=== PATIENT | male | born 1990 | race African-American/Black ===

== ENCOUNTER 2017-09-21 16:52 | Emergency (ER) | payer BC ==
[~2017-09-21] VITALS: Ht 182.9 cm; Wt 102.2 kg
[~2017-09-21 16:52] MED LIST: ALBUAER2 INH
[2017-09-21 17:01] VITALS: BP 137/86; PULSE 82; TEMP 36.6; O2SAT 100; Ht 182.9 cm; Wt 102.2 kg
[2017-09-23] MEDS ORDERED: ACET-1047 PO (12:43)
[2017-09-23] MEDS ORDERED: ULT50X PO (12:43)
[2017-09-23] MEDS ORDERED: XRL15 PO (12:43)
== END 2017-09-21 18:29 | disposition left against medical advice (07) ==
LOC: C.EDB 16:54 → C.EDC 18:29
DX: R07.9 Chest pain, unspecified (principal)

== ENCOUNTER 2017-09-21 22:23 | Inpatient (IN) | payer BC, OTHER ==
[~2017-09-21] VITALS: Ht 182.9 cm; Wt 109.3 kg
[2017-09-21] MEDS ORDERED: ONDANSETRON INJ 2 MG/ML 2 ML VIAL IV STA (22:38)
[2017-09-21] MEDS ORDERED: ASPIRIN 324 MG CHEW PO STA (22:38)
[2017-09-21] MEDS ORDERED: SODIUM CHLORIDE 0.9% 1000ML 1,000 ML IV ONE (22:45)
[2017-09-21] MEDS ORDERED: NITROGLYCERIN 2% OINTMENT 30GM TUBE EXT ONE (22:45)
[2017-09-21] MEDS ORDERED: OPTIRAY 320 IV PRN (22:45)
[2017-09-21] MEDS ORDERED: MoRPHine SULFATE 4 MG/ML 1 ML CARP\\VIAL IV ONE ×2 (22:45→23:45)
--- NOTE | 2017-09-21 23:09 | DIAGNOSTIC IMAGING REPORT ---
CHEST ONE VIEW PORTABLE HISTORY: Atypical Chest pain COMPARISON: None. FINDINGS: There are low lung volumes. Prominence of interstitial markings may be due to vascular crowding from the low lung volumes. No definite focal lung consolidations. The heart is normal in size. No pleural effusions. No pneumothorax. IMPRESSION: No acute process. Low lung volumes. Electronically signed by: Mickey Avelar M.D. 09/21/2017 11:07 PM Dictated Date/Time: 09/21/2017 11:06 PM
[2017-09-21 23:13] LABS: BASO % 0.1 %; BASO ABS # 0.01 K/uL (0-0.2); EOS % 0.4 %; EOS ABS # 0.05 K/uL (0-0.5); HEMATOCRIT 42.4 % (42-52); HEMOGLOBIN 14.4 g/dL (14.0-18.0); IG# 0.03 K/uL (0.00-0.02); LYMPH % 20.6 %; LYMPH ABS # 2.33 K/uL (1.2-3.4); MEAN CELL VOLUME 86.2 fL (80-100); MEAN CORPUSCULAR HEMOGLOBIN 29.3 pg (25-34); MEAN PLATELET VOLUME 9.5 fL (7.4-10.4); MONO % 6.7 %; MONO ABS # 0.76 K/uL (0.11-0.59); NEUT % 71.9 %; NEUT ABS # 8.14 K/uL (1.4-6.5); PLATELET COUNT 231 K/uL (130-400); RED CELL DISTRIBUTION WIDTH CV 11.8 % (11.5-14.5); RED CELL DISTRIBUTION WIDTH SD 37.1 fL (36.4-46.3); WHITE BLOOD COUNT 11.32 K/uL (4.8-10.8)
[2017-09-21 23:23] LABS: INR 0.9 (0.9-1.1); PTT PATIENT 28.1 SECONDS (21.0-31.0)
[2017-09-21 23:31] LABS: ALBUMIN 3.9 gm/dl (3.4-5.0); CALCIUM 8.4 mg/dl (8.5-10.1); CREATININE 1.15 mg/dl (0.60-1.40); POTASSIUM 3.9 mmol/L (3.5-5.1)
[2017-09-21 23:42] LABS: TOTAL PROTEIN 7.8 gm/dl (6.4-8.2)
[2017-09-22] VITALS (7 sets, daily range): BP systolic 117–149; BP diastolic 74–82; PULSE 71–95; TEMP 36.6–37.1; O2SAT 96–100; Ht 182.9 cm; Wt 109.3 kg
[2017-09-22] MEDS ORDERED: HYDROmorphone INJ 0.5 MG/0.5 ML SYR IV STA (00:25)
[2017-09-22] MEDS ORDERED: CALCIUM GLUCONATE 10% 1,000 MG in SODIUM CHLORIDE 0.9% 50ML 50 ML IV STA (00:42)
[2017-09-22] MEDS ORDERED: ENOXAPARIN 1 MG/KG SQ ONE (00:45)
[2017-09-22] MEDS ORDERED: ENOXAPARIN 120 MG/0.8 ML SYR SQ STA (00:49)
[2017-09-22] MEDS ORDERED: LIDODERM (LIDOCAINE) PATCH 5% TD ONE (01:12)
[2017-09-22] MEDS ORDERED: HYDROmorphone INJ 0.5 MG/0.5 ML SYR IV PRN (01:15)
[2017-09-22] MEDS ORDERED: LORAZEPAM 2 MG/ML 1 ML VIAL IV PRN (01:15)
[2017-09-22] MEDS ORDERED: PROCHLORPERAZINE INJ 5 MG in SYRINGE 4 ML IV PRN (01:15)
[2017-09-22] MEDS ORDERED: KETOROLAC TROMETHAMINE 30 MG/ML VIAL IV STA (01:16)
[2017-09-22] MEDS ORDERED: DOCUSATE SODIUM 100 MG CAP PO ONE (01:16)
[2017-09-22] MEDS ORDERED: NSS + 20MEQ KCL 1000ML 1,000 ML IV ONE (03:00)
--- NOTE | 2017-09-22 04:55 | HISTORY & PHYSICAL EXAMINATION ---
DATE OF ADMISSION: 09/22/2017 PRIMARY CARE PHYSICIAN: None. CHIEF COMPLAINT: Left sided chest pain. HISTORY OF PRESENT ILLNESS: No significant medical history. Yesterday, the patient noted left-sided chest pain, pleuritic with some shortness of breath. No hemoptysis, no cough, no trauma. Right leg little sore. Recent travel by car to [place] to visit family, would make pit stops. No previous episodes. No unusual weight loss, fever, chills. At the Emergency Room, CT chest initial read, pulmonary embolism, left lung base, pulmonary infarct left lobe, reduced lung volumes. Patient given weight-based Lovenox at the ER. MEDICAL HISTORY: As above. SURGERIES: None. HOME MEDICATIONS: None. ALLERGIES: No known drug allergies. FAMILY HISTORY: Paraplegic father has history of blood clots. PERSONAL AND SOCIAL HISTORY: Nonsmoker, no chronic intake of alcoholic beverages. vendor manager. REVIEW OF SYSTEMS: As per HPI. All 10 systems reviewed. All other ROS negative. PHYSICAL EXAMINATION: VITAL SIGNS: Blood pressure was noted to be 130/66, pulse rate 111 later 90, RR 20, temperature 36.7, sats 99 on room air. GENERAL: Noted to be obese, slightly anxious, discomfort, no respiratory distress. SKIN: Normal color, warm. HEENT: Patrick palpebral conjunctivae. No ptosis. Dry mucosa. NECK: Short, supple. CHEST: Decreased effort. Tenderness in the left chest wall. HEART : RRR, no murmur ABDOMEN: Some distention, nontender. EXTREMITIES: No edema. Minimal tenderness on the right lower extremity. NEUROLOGIC: Coherent. No gross focality. LABORATORY DATA: Hemoglobin was noted to be 14.4, hematocrit 42.4, white blood cell count 11.2, platelets 231. Sodium 139, potassium 3.9, chloride 104, CO2 of 28, BUN 8, creatinine 1.15, glucose was noted to be 118. Troponin was 0.03. CTA as per my above. EKG as per my interpretation, rate 85, normal sinus rhythm, no ischemia, possible LVH. ASSESSMENT: 1. Acute pulmonary embolism No obvious provoking factor for now Rule out LE DVT as source of clot. 2. Hyperglycemia rule out DM PLAN: PCU Weight-based Lovenox SQ for now. Defer discussion regarding oral anticoagulation between patient and AM provider. LE venous Dopplers rule out DVT check hemoglobin A1c. DVT prophylaxis, Lovenox subQ. Full code. MTDD
--- NOTE | 2017-09-22 06:25 | DIAGNOSTIC IMAGING REPORT ---
BILATERAL LOWER EXTREMITY VENOUS DOPPLER CLINICAL HISTORY: Pulmonary emboli COMPARISON STUDY: No previous studies for comparison. TECHNIQUE: Sonography of the deep venous system of the bilateral lower extremities was performed. Compression and augmentation were evaluated. FINDINGS: The bilateral common femoral, superficial femoral and popliteal veins were compressible. Augmentation was normal. Flow was shown within the deep calf vessels. IMPRESSION: No evidence of deep venous thrombus within the bilateral lower extremities. Electronically signed by: Calixto Parks M.D. 09/22/2017 6:23 AM Dictated Date/Time: 09/22/2017 6:21 AM
[2017-09-22] MEDS: ACETAMINOPHEN 325 MG TAB PO PRN (07:14)
--- NOTE | 2017-09-22 07:25 | DIAGNOSTIC IMAGING REPORT ---
(CHEST FOR PE) ANGIO WITH CLINICAL HISTORY: 27 years-old Male presenting with ^Chest pain, shortness of breath. TECHNIQUE: Multidetector CT angiography of the chest was performed after administration of intravenous contrast. 3-D volumetric and/or maximum intensity projection (MIP) images were subsequently reconstructed for review. IV contrast: 93 mL of Optiray 320. A dose lowering technique was used consistent with the principles of ALARA (as low as reasonably achievable). COMPARISON: Chest x-ray performed earlier the same day. CT DOSE (mGy.cm): The estimated cumulative dose is 663.63 mGy.cm. FINDINGS: Peritoneal Dialysis Registered Nurse topogram: Low lung volumes. Pulmonary vasculature: The study is suboptimal for the assessment of the pulmonary vascular tree secondary to timing of the contrast bolus and respiratory motion artifact. Filling defect within the posterior basal/lateral basal subsegmental pulmonary artery to the left lower lobe (series 4 image 113). The embolus appears somewhat eccentric suggesting possible subacute time course. Main pulmonary artery enlarged measuring 3.2 cm in diameter. No flattening of the interventricular septum. No intracardiac filling defect. No reflux of contrast into the hepatic veins. Remaining chest: On soft tissue windows, bilateral gynecomastia. Normal thyroid. No axillary, supraclavicular, hilar, or mediastinal lymphadenopathy. Normal aorta. Normal heart size. No pericardial or pleural effusion. Upper abdomen normal. On lung windows, extensive groundglass opacity in the posterior basal left lower lobe. Mosaic attenuation throughout the lungs may relate to the phase of respiration or small airways disease. Mild bronchial wall thickening in the involved segments of the left lower lobe. Minimal bronchial debris noted in subsegmental left lower lobe bronchi. More central airways patent. On bone windows, normal osseous structures. IMPRESSION: 1. Findings consistent with pulmonary embolus to subsegmental branches of the posterior basal/lateral basal left lower lobe. The embolus appears somewhat eccentric, which could suggest a subacute time course and organization of thrombus. Regional consolidation in the left lower lobe suggest pulmonary infarct. Superimposed infection is considered less likely though the presence of bronchial wall thickening and bronchial debris is somewhat atypical. This consolidation should be followed to resolution. Preliminary findings were discussed with Dr. Huitron by Dr. Cedeño on 09/22/2017 12:24 AM. The report will be called/faxed according to standard departmental protocol. Electronically signed by: Stephen Dias M.D. 09/22/2017 7:24 AM Dictated Date/Time: 09/22/2017 6:46 AM
[2017-09-22 07:34] LABS: BLOOD UREA NITROGEN 8 mg/dl (7-18); CREATININE 0.95 mg/dl (0.60-1.40); GLUCOSE 105 mg/dl (70-99)
[2017-09-22 07:35] LABS: CARBON DIOXIDE 27 mmol/L (21-32); SODIUM 138 mmol/L (136-145)
[2017-09-22] MEDS: TRAMADOL HCL 50 MG TAB PO PRN (11:38)
[2017-09-22] MEDS: HYDROmorphone INJ 0.5 MG/0.5 ML SYR IV PRN ×2 (14:00→20:36)
[2017-09-22] MEDS: ENOXAPARIN 120 MG/0.8 ML SYR SQ SCH ×2 (14:01→20:34)
--- NOTE | 2017-09-22 16:23 | Consultant Recommendations ---
Customer Security Clerk Recommendations Date of Service Sep 22, 2017. Customer Security Clerk Recommendations Pulmonary Follow up with Dr. Robertson, 10/07/17 at 11:00am. [address] [facility] [place] [phone]
[2017-09-22] MEDS ORDERED: ONDANSETRON INJ 2 MG/ML 2 ML VIAL IV PRN (18:30)
--- NOTE | 2017-09-22 18:54 | Progress Note ---
Progress Note Date of Service Sep 22, 2017. Progress Note Subjective: Patient breathing comfortably on room air generally. Does report of having pain when taking deep breaths Physical Exam General: no acute distress Lungs:good air entry, no wheezes, no crackles Heart: regular rate Abdomen: soft,nontender, + bowel sounds Extremities: no edema This is a 27 year old M with newly diagnosed pulmonary embolism with CTA impressions as below CTA "Findings consistent with pulmonary embolus to subsegmental branches of the posterior basal/lateral basal left lower lobe. The embolus appears somewhat eccentric, which could suggest a subacute time course and organization of thrombus. Regional consolidation in the left lower lobe suggest pulmonary infarct. Superimposed infection is considered less likely though the presence of bronchial wall thickening and bronchial debris is somewhat atypical. This consolidation should be followed to resolution." No evidence of deep venous thrombus within the bilateral lower extremities. Patient currently on full dose Lovenox BID for treating the PE with plan to discharge on Xarelto with low cost Xarelto being arranged by case management Patient also has pleuritic chest pain likely due to the pulmonary embolism and will continue pain medications and bowel regimen to prevent narcotic induced ileus Possible discharge tomorrow Pulmonary Follow up with Dr. Robertson, 10/07/17 at 11:00am. [address] [facility] [place]. [phone]
--- NOTE | 2017-09-22 23:33 | EMERGENCY ROOM VISIT NOTE ---
History First contact with patient: 22:30 Chief Complaint: SHORTNESS OF BREATH Stated Complaint: PULMONARY EMBOLISM Nursing Triage Summary: patient states this AM he developed chest pain. believed the pain was gas pain. pain decreased after burping. tonight patient fell asleep and awoke with worsening chest pain and shortness of breath History of Present Illness The patient is a 27 year old male who presents to the Emergency Room with complaints of left-sided chest pain that began about 12 hours ago when he awoke from sleep. The patient states that he has had difficulty sleeping tonight because of the pain. Different positions and deep inspiration worsen the discomfort which he rates a 10/10. The patient did initially check into the ER several hours ago, but left without being seen as he felt his symptoms may have been related to gas in his stomach. The patient has not had fever or chills. He states that he did travel to and from [facility] a few weeks ago, but does not have other recent travel history. He does not take medication on a regular basis and considers himself otherwise usually healthy. Review of Systems More than 10 systems were reviewed and otherwise negative with the exception of history of present illness. Past Medical/Surgical History Medical Problems: (1) Pulmonary embolism Social History Smoking Status: Never Smoker Housing Status: lives with family Current/Historical Medications No Active Prescriptions or Reported Meds Physical Exam Vital Signs Date Time Temp Pulse Resp B/P (MAP) Pulse Ox O2 Delivery O2 Flow Rate FiO2 09/22/17 00:40 111 99 09/22/17 00:30 130/66 09/22/17 00:25 84 20 96 09/22/17 00:10 85 23 98 09/22/17 00:05 86 28 97 09/22/17 00:00 132/79 09/21/17 23:31 123/74 09/21/17 23:20 82 22 98 09/21/17 23:15 83 25 99 Room Air 09/21/17 23:05 129/76 09/21/17 23:04 84 09/21/17 23:02 96 Room Air 09/21/17 23:02 Room Air 09/21/17 22:26 36.7 91 20 132/86 97 Room Air Physical Exam VITALS: Vitals are noted on the nurse's note and reviewed by myself. Vital signs stable. GENERAL: Well-developed, well-nourished, black male who appears in moderate to severe discomfort secondary to his stated complaint. He is holding his left side chest with his right hand. NECK: Supple without nuchal rigidity. No lymphadenopathy. No thyromegaly. Cervical spine is nontender. HEART: Regular rate and rhythm without murmurs gallops or rubs. LUNGS: Clear to auscultation bilaterally without wheezes, rales or rhonchi. No retractions or accessory muscle use. ABDOMEN: Positive normal bowel sounds x 4. Soft, nontender, without masses or organomegaly. No guarding or rebound tenderness. MUSCULOSKELETAL: No muscle atrophy, erythema, or edema noted. Full range of motion in all extremities. No tenderness to palpation. No significant calf tenderness. No palpable cords. NEURO: Patient was alert and oriented to person place and time. CN II through XII grossly intact. Medical Decision & Procedures ER Provider Diagnostic Interpretation: Preliminary Findings Only See Final Report For Complete Findings CTA CHEST: Pulmonary embolus in the left lung base. Pulmonary infarct in the left lower lobe. Reduced lung volumes. Laboratory Results 09/21/17 22:45 Red Blood Count 4.92, Mean Corpuscular Volume 86.2, Mean Corpuscular Hemoglobin 29.3, Mean Corpuscular Hemoglobin Concent 34.0, Mean Platelet Volume 9.5, Neutrophils (%) (Auto) 71.9, Lymphocytes (%) (Auto) 20.6, Monocytes (%) (Auto) 6.7, Eosinophils (%) (Auto) 0.4, Basophils (%) (Auto) 0.1, Neutrophils # (Auto) 8.14, Lymphocytes # (Auto) 2.33, Monocytes # (Auto) 0.76, Eosinophils # (Auto) 0.05, Basophils # (Auto) 0.01 Test 09/21/17 22:45 09/21/17 22:51 09/21/17 23:35 White Blood Count 11.32 K/uL (4.8-10.8) Red Blood Count 4.92 M/uL (4.7-6.1) Hemoglobin 14.4 g/dL (14.0-18.0) Hematocrit 42.4 % (42-52) Mean Corpuscular Volume 86.2 fL (80-100) Mean Corpuscular Hemoglobin 29.3 pg (25-34) Mean Corpuscular Hemoglobin Concent 34.0 g/dl (32-36) Platelet Count 231 K/uL (130-400) Mean Platelet Volume 9.5 fL (7.4-10.4) Neutrophils (%) (Auto) 71.9 % Lymphocytes (%) (Auto) 20.6 % Monocytes (%) (Auto) 6.7 % Eosinophils (%) (Auto) 0.4 % Basophils (%) (Auto) 0.1 % Neutrophils # (Auto) 8.14 K/uL (1.4-6.5) Lymphocytes # (Auto) 2.33 K/uL (1.2-3.4) Monocytes # (Auto) 0.76 K/uL (0.11-0.59) Eosinophils # (Auto) 0.05 K/uL (0-0.5) Basophils # (Auto) 0.01 K/uL (0-0.2) RDW Standard Deviation 37.1 fL (36.4-46.3) RDW Coefficient of Variation 11.8 % (11.5-14.5) Immature Granulocyte % (Auto) 0.3 % Immature Granulocyte # (Auto) 0.03 K/uL (0.00-0.02) Prothrombin Time 9.7 SECONDS (9.0-12.0) Prothromb Time International Ratio 0.9 (0.9-1.1) Activated Partial Thromboplast Time 28.1 SECONDS (21.0-31.0) Partial Thromboplastin Ratio 1.1 Magnesium Level 2.1 mg/dl (1.8-2.4) Total Bilirubin 0.5 mg/dl (0.2-1) Aspartate Amino Transf (AST/SGOT) 16 U/L (15-37) Alanine Aminotransferase (ALT/SGPT) 26 U/L (12-78) Alkaline Phosphatase 60 U/L (45-117) Total Protein 7.8 gm/dl (6.4-8.2) Albumin 3.9 gm/dl (3.4-5.0) Globulin 3.9 gm/dl (2.5-4.0) Albumin/Globulin Ratio 1.0 (0.9-2) Lipase 117 U/L (73-393) Thyroid Stimulating Hormone (TSH) 0.853 uIu/ml (0.300-4.500) Bedside Troponin I < 0.030 ng/ml (0-0.045) Urine Color YELLOW Urine Appearance CLEAR (CLEAR) Urine pH 7.0 (4.5-7.5) Urine Specific Chambers 1.018 (1.000-1.030) Urine Protein NEG (NEG) Urine Glucose (UA) NEG (NEG) Urine Ketones NEG (NEG) Urine Occult Blood NEG (NEG) Urine Nitrite NEG (NEG) Urine Bilirubin NEG (NEG) Urine Urobilinogen NEG (NEG) Urine Leukocyte Esterase NEG (NEG) Medications Administered Medications (Trade) Dose Ordered Sig/Hema Route Start Time Stop Time Status Last Admin Dose Admin Sodium Chloride 1,000 ml @ 999 mls/hr Q1H1M ONCE IV 09/21/17 22:45 09/21/17 23:45 DC 09/21/17 22:55 999 MLS/HR Morphine Sulfate (MoRPHine SULFATE INJ) 4 mg NOW ONCE IV 09/21/17 22:45 09/21/17 22:46 DC 09/21/17 22:54 4 MG Ondansetron HCl (Zofran Inj) 4 mg NOW STAT IV 09/21/17 22:38 09/21/17 22:41 DC 09/21/17 22:53 4 MG Aspirin (Aspirin Chew) 324 mg NOW STAT PO 09/21/17 22:38 09/21/17 22:41 DC 09/21/17 22:53 324 MG Nitroglycerin (Nitroglycerin 2% Oint) 1 inch NOW ONCE EXT 09/21/17 22:45 09/22/17 01:30 DC 09/21/17 22:45 1 INCH Morphine Sulfate (MoRPHine SULFATE INJ) 4 mg NOW ONCE IV 09/21/17 23:45 09/21/17 23:46 DC 09/21/17 23:42 4 MG Hydromorphone HCl (Dilaudid Inj) 0.5 mg NOW STAT IV 09/22/17 00:25 09/22/17 00:28 DC 09/22/17 00:32 0.5 MG Calcium Gluconate 1000 mg/Sodium Chloride 60 ml @ 240 mls/hr NOW STAT IV 09/22/17 00:42 09/22/17 00:56 DC 09/22/17 01:12 240 MLS/HR ED Course Physical exam and history were performed. Nursing notes, EMR, and Medication List were personally reviewed. Patient appears to have left-sided chest pain bring him to the emergency department today. On presentation the patient appears quite uncomfortable and is clutching the left side of his chest. EKG was performed and was normal sinus rhythm at 93 bpm without ischemia and ectopy per my interpretation. IV access was established and labs are obtained. Portable chest x-ray was performed and did not show acute process. The patient was hydrated with normal saline. Because of his symptoms I elected to perform a CT angiogram of his chest. It took several rounds of IV morphine, and ultimately IV Dilaudid to keep his pain under control. He did have several episodes of tachypnea and intermittent tachycardia throughout his ER stay. The patient's blood work is as above and was reviewed. He does not have a significantly elevated white blood cell count, gross anemia, bandemia, or significant electrolyte imbalance. Lipase and transaminases are not diagnostic. Troponin [address] angiogram was remarkable for a left lower lobe pulmonary emboli, which is felt to be the likely cause of his chest discomfort. The patient was given Lovenox here in the department. I discussed the case with my attending physician, who remain closely involved in care decision-making. The case was then discussed with the on-call [facility] hospitalist, who will evaluate the patient here in the department. Please see their dictation for further patient course, plan, and disposition. The chart was completed utilizing [employer] Speech Voice Recognition Software. Grammatical errors, random word insertions, pronoun errors, and incomplete sentences are an occasional consequence of this system due to software limitations, ambient noise, and hardware issues. Any formal questions or concerns about the content, text, or information contained within the body of this dictation should be directly addressed to the provider for clarification. . Medical Decision Differential diagnosis includes, but is not limited to: Myocardial infarction, dysrhythmia, pericarditis, pneumothorax, aortic aneurysm/dissection, DVT/PE, anxiety, GERD, PUD, electrolyte imbalance, thyroid disorder, pneumonia, bronchitis, pancreatitis, and others Impression Primary Impression: Acute pulmonary embolism Critical Care I have personally spent greater than 30 minutes of critical care time in the direct management of this patient. This includes bedside care, interpretation of diagnostic studies, and testing, discussion with consultants, patient, and family members, and other required patient management activities. This 30 minutes is in excess of all separately billable procedures. Departure Information Dispostion Still a Patient Condition FAIR Prescriptions No Active Prescriptions or Reported Meds Referrals No Doctor, Assigned (PCP) Forms HOME CARE DOCUMENTATION FORM, IMPORTANT VISIT INFORMATION Patient Instructions [facility]
[2017-09-23 04:00] VITALS: BP 136/86; PULSE 81; TEMP 37.5; O2SAT 97
[2017-09-23] MEDS: TRAMADOL HCL 50 MG TAB PO PRN (04:38)
[2017-09-23 07:11] LABS: BASO % 0.2 %; BASO ABS # 0.02 K/uL (0-0.2); EOS % 0.4 %; EOS ABS # 0.04 K/uL (0-0.5); HEMATOCRIT 40.8 % (42-52); HEMOGLOBIN 13.7 g/dL (14.0-18.0); IG# 0.03 K/uL (0.00-0.02); LYMPH % 18.2 %; LYMPH ABS # 1.95 K/uL (1.2-3.4); MEAN CELL VOLUME 87.2 fL (80-100); MEAN CORPUSCULAR HEMOGLOBIN 29.3 pg (25-34); MEAN CORPUSCULAR HGB CONC 33.6 g/dl (32-36); MEAN PLATELET VOLUME 9.7 fL (7.4-10.4); MONO % 8.5 %; MONO ABS # 0.91 K/uL (0.11-0.59); NEUT % 72.4 %; NEUT ABS # 7.75 K/uL (1.4-6.5); PLATELET COUNT 244 K/uL (130-400); RED CELL DISTRIBUTION WIDTH CV 11.8 % (11.5-14.5); RED CELL DISTRIBUTION WIDTH SD 37.4 fL (36.4-46.3)
[2017-09-23 07:26] VITALS: BP 128/78; PULSE 74; TEMP 37; O2SAT 97
[2017-09-23] MEDS: ACETAMINOPHEN 325 MG TAB PO PRN (08:36)
[2017-09-23] MEDS ORDERED: DOCUSATE SODIUM 100 MG CAP PO SCH (09:00)
[2017-09-23] MEDS ORDERED: RIVAROXABAN TAB 15 MG TAB PO SCH (09:00)
[2017-09-23] MEDS ORDERED: LIDODERM (LIDOCAINE) PATCH 5% TD SCH (09:00)
[2017-09-23] MEDS ORDERED: RIVAROXABAN 20 MG TAB PO SCH (09:00)
[2017-09-23 11:48] VITALS: BP 143/81; PULSE 78; TEMP 36.7; O2SAT 98
--- NOTE | 2017-09-23 12:35 | Progress Note ---
Internal Med Progress Note Date of Service: Sep 23, 2017. Provider Documentation: Subjective: Patient breathing comfortably on room air generally. Does report of having pain when taking deep breaths Physical Exam General: no acute distress Lungs:good air entry, no wheezes, no crackles Heart: regular rate Abdomen: soft,nontender, + bowel sounds Extremities: no edema ASSESSMENT & PLAN: Hospital Course This is a 27 year old M with newly diagnosed pulmonary embolism with CTA impressions as below CTA 09/21/17 "Findings consistent with pulmonary embolus to subsegmental branches of the posterior basal/lateral basal left lower lobe. The embolus appears somewhat eccentric, which could suggest a subacute time course and organization of thrombus. Regional consolidation in the left lower lobe suggest pulmonary infarct. Superimposed infection is considered less likely though the presence of bronchial wall thickening and bronchial debris is somewhat atypical. This consolidation should be followed to resolution." No evidence of deep venous thrombus within the bilateral lower extremities on ultrasound 09/22/17 Patient was treated in the hospital with full dose Lovenox BID for treating the Pulmonary embolism and transitioned to Xarelto upon discharge Discharge Instructions Patient to be given prescription for pain medication for the pleuritic chest pain from the pulmonary embolism Patient is instructed to pickling operator low cost Xarelto starter pack that was arranged by case management at [facility] [address] [place] [facility] [place] [place] [address] Patient will need to be on Xarelto medication for at least 3 months and need to follow with primary care doctor for further Xarelto prescriptions ( Initial dosing is 15 mg twice daily with food for 21 days, followed by 20 mg once daily with food) 09/27/2017 11:20 AM Michael He DO [facility] Patient also has Pulmonary clinic Follow up with Dr. Robertson, 10/07/17 at 11: 00am. [address] [facility] [place]. [phone] Patient is instructed to return to the emergency room if develops problems with breathing Vital Signs: Date Time Temp Pulse Resp B/P (MAP) Pulse Ox O2 Delivery O2 Flow Rate FiO2 09/23/17 12:00 Room Air 09/23/17 11:48 36.7 78 18 143/81 (101) 98 Room Air 09/23/17 08:00 Room Air 09/23/17 07:26 37.0 74 18 128/78 (95) 97 Room Air 09/23/17 04:00 Room Air 09/23/17 04:00 37.5 81 16 136/86 (103) 97 Room Air 09/22/17 23:59 Room Air 09/22/17 23:56 36.9 82 16 133/77 (95) 98 Room Air 09/22/17 20:00 Room Air 09/22/17 19:13 36.9 80 18 149/74 (99) 97 Room Air 09/22/17 16:00 Room Air 09/22/17 14:49 37.1 80 18 139/74 (95) 97 Room Air Lab Results: Results Past 24 Hours Test 09/22/17 16:13 09/23/17 06:33 Range/Units White Blood Count 10.70 4.8-10.8 K/uL Red Blood Count 4.68 4.7-6.1 M/uL Hemoglobin 13.7 14.0-18.0 g/dL Hematocrit 40.8 42-52 % Mean Corpuscular Volume 87.2 80-100 fL Mean Corpuscular Hemoglobin 29.3 25-34 pg Mean Corpuscular Hemoglobin Concent 33.6 32-36 g/dl Platelet Count 244 130-400 K/uL Mean Platelet Volume 9.7 7.4-10.4 fL Neutrophils (%) (Auto) 72.4 % Lymphocytes (%) (Auto) 18.2 % Monocytes (%) (Auto) 8.5 % Eosinophils (%) (Auto) 0.4 % Basophils (%) (Auto) 0.2 % Neutrophils # (Auto) 7.75 1.4-6.5 K/uL Lymphocytes # (Auto) 1.95 1.2-3.4 K/uL Monocytes # (Auto) 0.91 0.11-0.59 K/uL Eosinophils # (Auto) 0.04 0-0.5 K/uL Basophils # (Auto) 0.02 0-0.2 K/uL RDW Standard Deviation 37.4 36.4-46.3 fL RDW Coefficient of Variation 11.8 11.5-14.5 % Immature Granulocyte % (Auto) 0.3 % Immature Granulocyte # (Auto) 0.03 0.00-0.02 K/uL
[2017-09-23] MEDS ORDERED: ULT50X PO (12:43)
[2017-09-23] MEDS ORDERED: ACET-1047 PO (12:43)
[2017-09-23] MEDS ORDERED: XRL15 PO (12:43)
--- NOTE | 2017-09-23 12:50 | Discharge Instructions ---
Discharge Instructions Date of Service Sep 23, 2017. Admission Reason for Admission: Pulmonary Embolism VTE Date & Time Date of VTE Diagnosis: Sep 21, 2017 Time of VTE Diagnosis: 22:38 Discharge Goals Goal(s): Decrease discomfort, Improve function, Improve disease control Activity Recommendations Activity Limitations: per Instructions/Follow-up section Lifting Limitations: until after follow-up appointment Exercise/Sports Limitations: until after follow-up appointment Shower/Bathe: no limitations . Instructions / Follow-Up Instructions / Follow-Up Hospital Course This is a 27 year old M with newly diagnosed pulmonary embolism with CTA impressions as below CTA 09/21/17 "Findings consistent with pulmonary embolus to subsegmental branches of the posterior basal/lateral basal left lower lobe. The embolus appears somewhat eccentric, which could suggest a subacute time course and organization of thrombus. Regional consolidation in the left lower lobe suggest pulmonary infarct. Superimposed infection is considered less likely though the presence of bronchial wall thickening and bronchial debris is somewhat atypical. 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 Robertson, 10/07/17 at 11: 00am. [address] [facility]. [phone] Patient is instructed to return to the emergency room if develops problems with breathing Medication Instructions: Your condition is typically treated with an anticoagulant. Anticoagulants will thin your blood to help prevent new clots. * You should take her medication exactly as directed. * Never skip a dose. * Never take a double dose. If you miss a dose, take it as soon as you remember. Call your Primary Care doctor if you experience any of the following: * Swelling or Pain in your leg * Sudden, continuous pain deep in a muscle * Pain that worsens when you are active or when you stand still for a long time * Chest Pain * Sudden Shortness of Breath * Rapid or pounding heart beat * Fainting * Dizziness * Cough with blood or bloody sputum * Sweating more than normal * Bruises * Heavy or uncontrolled bleeding * Blood in your urine, stool or vomit * Black or tarry stools Caring for Your Self at Home: * Avoid sitting, standing or lying down for long periods without moving your legs and feet * When traveling by car, stop to get out and move around at least once every 3 hours * On long airplane, train or bus rides, get up and move around when possible * If you can't get up, wiggle your toes and tighten your calves to keep your blood moving Follow Up: It is important for you to keep your follow up appointments with your medical provider. Current Hospital Diet Patient's current hospital diet: Regular Diet Discharge Diet Recommended Diet: Regular Diet Pending Studies Studies pending at discharge: no Laboratory Results 09/23/17 06:33 Red Blood Count 4.68, Mean Corpuscular Volume 87.2, Mean Corpuscular Hemoglobin 29.3, Mean Corpuscular Hemoglobin Concent 33.6, Mean Platelet Volume 9.7, Neutrophils (%) (Auto) 72.4, Lymphocytes (%) (Auto) 18.2, Monocytes (%) (Auto) 8.5, Eosinophils (%) (Auto) 0.4, Basophils (%) (Auto) 0.2, Neutrophils # (Auto) 7.75, Lymphocytes # (Auto) 1.95, Monocytes # (Auto) 0.91, Eosinophils # (Auto) 0.04, Basophils # (Auto) 0.02 09/22/17 06:55 Test 09/21/17 22:45 09/21/17 22:51 09/21/17 23:35 09/22/17 06:55 Prothrombin Time 9.7 SECONDS (9.0-12.0) Prothromb Time International Ratio 0.9 (0.9-1.1) Activated Partial Thromboplast Time 28.1 SECONDS (21.0-31.0) Partial Thromboplastin Ratio 1.1 Magnesium Level 2.1 mg/dl (1.8-2.4) Total Bilirubin 0.5 mg/dl (0.2-1) Aspartate Amino Transf (AST/SGOT) 16 U/L (15-37) Alanine Aminotransferase (ALT/SGPT) 26 U/L (12-78) Alkaline Phosphatase 60 U/L (45-117) Total Protein 7.8 gm/dl (6.4-8.2) Albumin 3.9 gm/dl (3.4-5.0) Globulin 3.9 gm/dl (2.5-4.0) Albumin/Globulin Ratio 1.0 (0.9-2) Lipase 117 U/L (73-393) Thyroid Stimulating Hormone (TSH) 0.853 uIu/ml (0.300-4.500) Bedside Troponin I < 0.030 ng/ml (0-0.045) Urine Color YELLOW Urine Appearance CLEAR (CLEAR) Urine pH 7.0 (4.5-7.5) Urine Specific [place] 1.018 (1.000-1.030) Urine Protein NEG (NEG) Urine Glucose (UA) NEG (NEG) Urine Ketones NEG (NEG) Urine Occult Blood NEG (NEG) Urine Nitrite NEG (NEG) Urine Bilirubin NEG (NEG) Urine Urobilinogen NEG (NEG) Urine Leukocyte Esterase NEG (NEG) Anion Gap 6.0 mmol/L (3-11) Est Creatinine Clear Calc Drug Dose 153.2 ml/min Estimated GFR () 128.4 Estimated GFR (Non- 110.8 BUN/Creatinine Ratio 8.6 (10-20) Calcium Level 8.0 mg/dl (8.5-10.1) Troponin I < 0.015 ng/ml (0-0.045) Test 09/22/17 16:13 09/23/17 06:33 White Blood Count 10.70 K/uL (4.8-10.8) Red Blood Count 4.68 M/uL (4.7-6.1) Hemoglobin 13.7 g/dL (14.0-18.0) Hematocrit 40.8 % (42-52) Mean Corpuscular Volume 87.2 fL (80-100) Mean Corpuscular Hemoglobin 29.3 pg (25-34) Mean Corpuscular Hemoglobin Concent 33.6 g/dl (32-36) Platelet Count 244 K/uL (130-400) Mean Platelet Volume 9.7 fL (7.4-10.4) Neutrophils (%) (Auto) 72.4 % Lymphocytes (%) (Auto) 18.2 % Monocytes (%) (Auto) 8.5 % Eosinophils (%) (Auto) 0.4 % Basophils (%) (Auto) 0.2 % Neutrophils # (Auto) 7.75 K/uL (1.4-6.5) Lymphocytes # (Auto) 1.95 K/uL (1.2-3.4) Monocytes # (Auto) 0.91 K/uL (0.11-0.59) Eosinophils # (Auto) 0.04 K/uL (0-0.5) Basophils # (Auto) 0.02 K/uL (0-0.2) RDW Standard Deviation 37.4 fL (36.4-46.3) RDW Coefficient of Variation 11.8 % (11.5-14.5) Immature Granulocyte % (Auto) 0.3 % Immature Granulocyte # (Auto) 0.03 K/uL (0.00-0.02) Medical Emergencies . Who to Call and When: Medical Emergencies: If at any time you feel your situation is an emergency, please call 911 immediately. . Non-Emergent Contact Non-Emergency issues call your: Primary Care Provider, Associate Professor Of Counseling Call Non-Emergent contact if: you have any medication questions . . "Provider Documentation" section prepared by Srinivsa Cline. . Library Media Assistant Recommendations Library Media Assistant Recommendations: Pulmonary Follow up with Dr. Robertson, 10/07/17 at 11:00am. [address] [facility]. [phone]
--- NOTE | 2017-09-23 13:05 | Discharge Summary ---
Discharge Summary Date of Service Sep 23, 2017. Discharge Summary Admission Date: Sep 22, 2017 at 00:44 Discharge Date: Sep 23, 2017 Principal Diagnosis: pulmonary embolus to subsegmental branches of the posterior basal/lateral basal left lower lobe Secondary Diagnoses/Problems: pleuritic chest pain Medication Reconciliation New Medications: Acetaminophen (Mapap) 325 Mg Tab 650 MG PO Q4H PRN for Pain or Fever for 10 Days, #80 TAB Rivaroxaban (Xarelto) 15 Mg Tab 15 MG PO BID for 21 Days, #42 TAB Tramadol HCl (Tramadol HCl) 50 Mg Tab 25-50 MG PO Q6H PRN for Pain for 4 Days, #16 TAB Admission Information HPI (per Admitting provider): CHIEF COMPLAINT: Left sided chest pain. HISTORY OF PRESENT ILLNESS: No significant medical history. Yesterday, the patient noted left-sided chest pain, pleuritic with some shortness of breath. No hemoptysis, no cough, no trauma. Right leg little sore. Recent travel by car to [place] to visit family, would make pit stops. No previous episodes. No unusual weight loss, fever, chills. At the Emergency Room, CT chest initial read, pulmonary embolism, left lung base, pulmonary infarct left lobe, reduced lung volumes. Patient given weight-based Lovenox at the ER. Physical Exam (per Admitting): PHYSICAL EXAMINATION: VITAL SIGNS: Blood pressure was noted to be 130/66, pulse rate 111 later 90, RR 20, temperature 36.7, sats 99 on room air. GENERAL: Noted to be obese, slightly anxious, discomfort, no respiratory distress. SKIN: Normal color, warm. HEENT: [place] palpebral conjunctivae. No ptosis. Dry mucosa. NECK: Short, supple. CHEST: Decreased effort. Tenderness in the left chest wall. HEART : RRR, no murmur ABDOMEN: Some distention, nontender. EXTREMITIES: No edema. Minimal tenderness on the right lower ext Hospital Course Hospital Course This is a 27 year old M with newly diagnosed pulmonary embolism with CTA impressions as below CTA 09/21/17 "Findings consistent with pulmonary embolus to subsegmental branches of the posterior basal/lateral basal left lower lobe. The embolus appears somewhat eccentric, which could suggest a subacute time course and organization of thrombus. Regional consolidation in the left lower lobe suggest pulmonary infarct. Superimposed infection is considered less likely though the presence of bronchial wall thickening and bronchial debris is somewhat atypical. 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 Robertson, 10/07/17 at 11: 00am. [address] [facility]. [place]. [phone] Patient is instructed to return to the emergency room if develops problems with breathing Total time spent on discharge = 40 minutes This includes examination of the patient, discharge planning, medication reconciliation, and communication with other providers. Discharge Instructions see above
[2017-09-23 13:06] VITALS: BP 143/81; PULSE 78; TEMP 36.7; O2SAT 98
[2017-09-24 13:07] LABS: QUANTIF MITOGEN-NIL >10.00 IU/ML; QUANTIFERON NEGATIVE (NEGATIVE); QUANTIFERON NIL 0.05 IU/ML
== END 2017-09-23 13:48 | disposition home or self-care (01) | DRG 176 ==
LOC: C.EDB 22:24 → C.2T 09-22 00:44 → ENRESERV 09-22 01:01
PROVIDERS: ADMIT Hospitalist; ATTEND Hospitalist
DX: I26.99 Other pulmonary embolism without acute cor pulmonale (principal); R73.9 Hyperglycemia, unspecified; Z83.2 Family history of diseases of the blood and blood-forming organs and certain disorders involving the immune mechanism